=== PATIENT | male | born 1950 | race Caucasian/White ===

== ENCOUNTER 2017-03-03 18:53 | Emergency (ER) | payer OTHER ==
[~2017-03-03] VITALS: Ht 182.9 cm; Wt 97.5 kg
[2017-03-03 19:23] LABS: ABSOLUTE BASOPHIL COUNT 0 /CUMM (0.0-0.2); ABSOLUTE EOSINOPHIL COUNT 0.1 /CUMM (0.0-0.7); ABSOLUTE GRANULOCYTE CT 4.4 /CUMM (1.4-6.5); ABSOLUTE LYMPH COUNT 2.3 /CUMM (1.2-3.4); ABSOLUTE MONOCYTE COUNT 0.6 /CUMM (0.10-0.60); BASOPHIL % 0.3 % (0.0-2.0); EOSINOPHIL % 1.4 % (0-5); GRANULOCYTE % 59.2 % (42.2-75.2); HEMATOCRIT 47.8 % (42-52); MEAN CORPUSCULAR HGB 27.7 PG (27.0-31.0); MEAN CORPUSCULAR HGB CONC 32.9 G/DL (33.0-37.0); MEAN CORPUSCULAR VOLUME 84.2 FL (80.0-94.0); MEAN PLATELET VOLUME 8.4 FL (7.4-10.4); PLATELET COUNT 221 /CUMM (130-400); RBC DISTRIBUTION WIDTH 14.2 % (11.5-14.5); RED BLOOD CELL CT 5.68 /CUMM (4.70-6.10); WHITE BLOOD CELL COUNT 7.4 /CUMM (4.8-10.8)
--- NOTE | 2017-03-03 19:32 | ED GI/GU/ABDOMINAL COMPLAINT ---
History of Present Illness General Chief Complaint: Abdominal Pain/Flank Pain Stated Complaint: RIGHT SIDED ABD PAIN Source: patient Exam Limitations: no limitations Vital Signs & Intake/Output Vital Signs & Intake/Output Vital Signs Date Time Temp Pulse Resp B/P B/P Pulse O2 O2 Flow FiO2 Mean Ox Delivery Rate 03/03 2230 97.7 59 18 164/96 97 Room Air 03/03 1901 97.4 73 14 156/99 100 Room Air ED Intake and Output 03/04 0000 03/03 1200 Intake Total 1000 Output Total Balance 1000 Intake, IV 1000 Patient 215 lb Weight Weight Reported by Patient Measurement Method Allergies Coded Allergies: No Known Allergies (03/03/17) Reconcile Medications Bupropion HCl (Bupropion XL) 150 MG TAB.ER.24H 1 TAB PO DAILY MENTAL HEALTH ( Reported) Clonazepam 1 MG TABLET 2 TAB PO QPM SLEEP (Reported) Ibuprofen 200 MG CAPSULE 4 CAP PO PRN PAIN (Reported) Oxycodone HCl/Acetaminophen (Percocet 5-325 MG Tablet) 5 MG-325 MG TABLET 1 TAB PO Q4-6 PRN PAIN Tramadol HCl 50 MG TABLET 1 TAB PO PRN PAIN (Reported) Triage Note: PT TO ED FOR R SIDED FLANK PAIN FOR PAST SEVERAL DAYS, SAW PCP YESTERDAY WHO PRESCRIBED TRAMADOL WITH NO RELIEF. PT TOOK 800MG IBUPROFEN AT HOME WITH SOME RELIEF. PT HAS DIFFICULTY AT BASELINE URINATING - NO OTHER S/S, NO NAUSEA, VOMITING, DIARRHEA. Triage Nurses Notes Reviewed? yes Onset: Gradual Duration: day(s): (5) Timing: recent history Location: right flank Radiation: no radiation Activities at Onset: none HPI: This is a 66-year-old relatively healthy male, history of anxiety disorder who presents to the chief complaint of right flank pain for the past 5 days. He states it started on Sunday. He noticed initially that it was worse with bending over to the left and better with bending over to the right. Over the last several days the pain has become more constant. It is positional. Denies any nausea vomiting fever or chills. On Sunday he went to see his primary care Dr. Alfaro who thought maybe it could be a kidney stone. He prescribed him tramadol which he picked up from the pharmacy. He states the tramadol has not been helping for the pain. Yesterday he took a dose of ibuprofen which seemed to help a little bit more. Today he was sitting in a movie theater and had pain so severe that he had to stand up and couldn't sit down. He denies any numbness or tingling. Denies any changes in his urine. He does have a history of urethral stricture which has been operated on 2 last surgery was 10 years ago. He states that he has some difficulty in a shooting stream but when distracted doesn't initiate he has no problems with urine. Denies any hematuria or dysuria. Denies any trouble with his bowel movements. Patient is very active, swims at least 2 hours a day. He had several hours of the weekend. Past History Travel History Traveled to [facility] past 21 day No Medical History Any Pertinent Medical History? see below for history Neurological: NONE EENT: NONE Cardiovascular: NONE Respiratory: NONE Gastrointestinal: NONE Hepatic: NONE Renal: NONE Musculoskeletal: NONE Psychiatric: anxiety Endocrine: NONE Blood Disorders: NONE Cancer(s): NONE Surgical History Surgical History: URETHRA STRICTURE X 2 Psychosocial History What is your primary language Chadian Tobacco Use: Never used ETOH Use: occasional use Illicit Drug Use: denies illicit drug use Family History Hx Contributory? No Review of Systems Review of Systems Constitutional: Denies: chills, fever. EENTM: Reports: no symptoms. Respiratory: Denies: cough, short of breath. Cardiovascular: Denies: chest pain, palpitations. GI: Denies: abdominal pain, nausea, vomiting. Genitourinary: Reports: no symptoms. Musculoskeletal: Reports: back pain, muscle pain. Denies: muscle stiffness. Skin: Reports: no symptoms. Neurological/Psychological: Reports: no symptoms. Hematologic/Endocrine: Denies: bruising, bleeding, polyuria, polydipsia. Immunologic/Allergic: Denies: splenectomy. All Other Systems: Reviewed and Negative Physical Exam Physical Exam General Appearance: well developed/nourished, alert, awake Head: atraumatic, normal appearance Eyes: Bilateral: normal appearance, PERRL, EOMI. Ears, Nose, Throat, Mouth: hearing grossly normal, moist mucous membrane Neck: normal inspection, supple, full range of motion Respiratory: normal breath sounds, chest non-tender, no respiratory distress Cardiovascular: regular rate/rhythm Peripheral Pulses: 2+ radial (R), 2+ radial (L) Gastrointestinal: normal bowel sounds, soft, non-tender Back: normal inspection, normal range of motion Extremities: normal range of motion, evidence of injury Neurologic/Psych: no motor/sensory deficits, awake, alert, oriented x 3 Skin: intact, normal color, warm/dry Core Measures ACS in differential dx? No Severe Sepsis Present: No Septic Shock Present: No Progress Differential Diagnosis: pyelonephritis, ureterolithiasis, UTI/pyelo Plan of Care: Orders Procedure Date/time Status Add-on Test (ER Only) 03/03 2304 Active CULTURE,URINE 03/03 2144 Active URINALYSIS 03/03 1902 Complete COMPREHENSIVE METABOLIC PANEL 03/03 1902 Complete CBC WITHOUT DIFFERENTIAL 03/03 1902 Complete Laboratory Tests 03/03/172143: Urine Color YEL, Urine Clarity CLEAR, Urine pH 6.0, Ur Specific Sharon 1.010, Urine Protein NEG, Urine Ketones NEG, Urine Nitrite NEG, Urine Bilirubin NEG, Urine Urobilinogen 0.2, Ur Leukocyte Esterase SMALL H, Ur Microscopic SEDIMENT EXAMINED, Urine RBC RARE, Urine WBC 5-10 H, Ur Epithelial Cells MOD H, Urine Mucus FEW, Urine Hemoglobin NEG, Urine Glucose NEG 03/03/171912: Anion Gap 14, Estimated GFR > 60, BUN/Creatinine Ratio 33.3 H, Glucose 81, Calcium 9.6, Total Bilirubin 0.6, AST 24, ALT 44, Alkaline Phosphatase 76, Total Protein 7.2, Albumin 4.5, Globulin 2.7, Albumin/Globulin Ratio 1.7, CBC w Diff NO MAN DIFF REQ, RBC 5.68, MCV 84.2, MCH 27.7, RDW 14.2, MPV 8.4, Gran % 59.2, Lymphocytes % 30.7, Monocytes % 8.4, Eosinophils % 1.4, Basophils % 0.3, Absolute Granulocytes 4.4, Absolute Lymphocytes 2.3, Absolute Monocytes 0.6, Absolute Eosinophils 0.1, Absolute Basophils 0, PUBS MCHC 32.9 L Microbiology 03/03 2144 URINE ROUT: Urine Culture - RE[facility] LABS, FLUIDS, IV TORADOL ORDERED. CT SCAN ORDERED. IV TYLENOL ORDERED. CT RESULTS PENDING. CT RESULTS DISCUSSED WITH PATIENT AND IMPORTANCE OF FINDING WAS RELAYED TO THE PATIENT. (ANA LAURA HERRERA,SARABJIT) Diagnostic Imaging: Viewed by Me: CT Scan. Discussed w/RAD: CT Scan. Radiology Impression: PATIENT: FRANCO BETTS PRESENT AGE: 66 PATIENT ACCOUNT NO: [id number] : 49 LOCATION: [facility] ORDERING PHYSICIAN: SARABJIT DU MD SERVICE DATE: 03/03/17 EXAM TYPE: CAT - CT ABD & PELVIS W IV CONTRAST EXAMINATION: CT ABDOMEN AND PELVIS WITH CONTRAST CLINICAL INFORMATION: Right flank pain for 5 days. COMPARISON: None TECHNIQUE: Multidetector volumetric imaging was performed of the abdomen and pelvis before and after the IV administration of 116 mL of Optiray 320 intravenous contrast. Sagittal and coronal reformatted images were obtained on the technologist's workstation. DLP: 968 mGy-cm FINDINGS: LUNG BASES: The visualized lung bases are unremarkable. LIVER, GALLBLADDER, AND BILIARY TREE: The liver is normal in size, shape, and attenuation. No focal hepatic lesion or biliary ductal dilatation is present. The gallbladder is unremarkable with no evidence of radiopaque gallstones, gallbladder wall thickening, or obvious pericholecystic inflammatory changes. PANCREAS: Unremarkable. SPLEEN: Unremarkable. ADRENAL GLANDS: Hypertrophied appearance of the left adrenal gland without focal nodule. KIDNEYS AND URETERS: The kidneys are normal in size, shape , and attenuation. No hydronephrosis, hydroureter, or calculi seen. No perinephric stranding. Bilateral renal cysts are present with parapelvic cysts. Within the posterior midpole of the right kidney, there is an exophytic 1.7 cm hyperattenuating lesion. This measures 64 Hounsfield units. BLADDER: Partially distended. Circumferential wall thickening. GASTROINTESTINAL TRACT: Small hiatal hernia. The stomach is otherwise unremarkable. The small bowel is unremarkable. No obstruction. The appendix is not visualized. No colonic wall thickening or inflammatory change. Scattered diverticulosis without diverticulitis. No free air or free fluid. ABDOMINAL WALL: Fat-containing right inguinal hernia. LYMPH NODES: Normal. VASCULAR: Unremarkable. PELVIC VISCERA: The prostate and seminal vesicles are unremarkable. OSSEOUS STRUCTURES: No acute or suspicious osseous abnormality. Mild degenerative changes of the hips and spine. Grade 1 anterolisthesis of L3 on L4 and L4 on L5. Multilevel facet arthropathy. IMPRESSION: 1. Hyperattenuating exophytic right midpole renal lesion measuring 1.7 cm. Though nonspecific, this raises concern for neoplasm. Further evaluation is recommended with renal protocol CT or MRI. 2. No hydronephrosis. Multiple bilateral renal cortical and parapelvic cysts. 3. Diverticulosis without diverticulitis. This critical result was discussed with SARABJIT DU MD by telephone at 03/04/2017 12:31 AM and it was ascertained that the content and urgency of the report was understood at the time of direct communication. DICTATED BY: LARS HERRERA,RAYMON DATE/TIME DICTATED:03/04/1720 ADOPTION COUNSELOR:WENDY DATE/TIME TRANSCRIBED:03/04/1720 CONFIDENTIAL, DO NOT COPY WITHOUT APPROPRIATE AUTHORIZATION. <Electronically signed in Other Vendor System> SIGNED BY: LARS HERRERA,RAYMON 03/04/17 0039 Initial ED EKG: none Departure Departure Time of Disposition: 50 Disposition: HOME OR SELF CARE Condition: Stable Clinical Impression Primary Impression: Flank pain Secondary Impressions: Renal mass Referrals: SLAVA HERRERA,MILLICENT Devi (PCP/Family) Additional Instructions: Please take the Vicodin as needed for pain. Take Percocet for breakthrough pain. Follow up with Dr. Golden on Sunday regarding your CAT scan results for outpatient further workup. Departure Forms: Customer Survey General Discharge Information Prescriptions: Current Visit Scripts Oxycodone HCl/Acetaminophen (Percocet 5-325 MG Tablet) 1 TAB PO Q4-6 PRN PAIN #10 TAB
[2017-03-03] MEDS ORDERED: CLONAZEPAM1 M2 PO (19:57)
[2017-03-03] MEDS ORDERED: TRAMADOL HCL50 M1 PO (19:58)
[2017-03-03] MEDS ORDERED: IBUPROFEN200 M3 PO (19:58)
[2017-03-03] MEDS ORDERED: BUPROPION XL150 MG PO (19:58)
--- NOTE | 2017-03-04 00:39 | CT SCAN REPORT ---
EXAMINATION: CT ABDOMEN AND PELVIS WITH CONTRAST CLINICAL INFORMATION: Right flank pain for 5 days. COMPARISON: None TECHNIQUE: Multidetector volumetric imaging was performed of the abdomen and pelvis before and after the IV administration of 116 mL of Optiray 320 intravenous contrast. Sagittal and coronal reformatted images were obtained on the technologist's workstation. DLP: 968 mGy-cm FINDINGS: LUNG BASES: The visualized lung bases are unremarkable. LIVER, GALLBLADDER, AND BILIARY TREE: The liver is normal in size, shape, and attenuation. No focal hepatic lesion or biliary ductal dilatation is present. The gallbladder is unremarkable with no evidence of radiopaque gallstones, gallbladder wall thickening, or obvious pericholecystic inflammatory changes. PANCREAS: Unremarkable. SPLEEN: Unremarkable. ADRENAL GLANDS: Hypertrophied appearance of the left adrenal gland without focal nodule. KIDNEYS AND URETERS: The kidneys are normal in size, shape, and attenuation. No hydronephrosis, hydroureter, or calculi seen. No perinephric stranding. Bilateral renal cysts are present with parapelvic cysts. Within the posterior midpole of the right kidney, there is an exophytic 1.7 cm hyperattenuating lesion. This measures 64 Hounsfield units. BLADDER: Partially distended. Circumferential wall thickening. GASTROINTESTINAL TRACT: Small hiatal hernia. The stomach is otherwise unremarkable. The small bowel is unremarkable. No obstruction. The appendix is not visualized. No colonic wall thickening or inflammatory change. Scattered diverticulosis without diverticulitis. No free air or free fluid. ABDOMINAL WALL: Fat-containing right inguinal hernia. LYMPH NODES: Normal. VASCULAR: Unremarkable. PELVIC VISCERA: The prostate and seminal vesicles are unremarkable. OSSEOUS STRUCTURES: No acute or suspicious osseous abnormality. Mild degenerative changes of the hips and spine. Grade 1 anterolisthesis of L3 on L4 and L4 on L5. Multilevel facet arthropathy. IMPRESSION: 1. Hyperattenuating exophytic right midpole renal lesion measuring 1.7 cm. Though nonspecific, this raises concern for neoplasm. Further evaluation is recommended with renal protocol CT or MRI. 2. No hydronephrosis. Multiple bilateral renal cortical and parapelvic cysts. 3. Diverticulosis without diverticulitis. This critical result was discussed with SAARBJIT DU MD by telephone at 03/04/2017 12:31 AM and it was ascertained that the content and urgency of the report was understood at the time of direct communication.
[2017-03-04] MEDS ORDERED: PERCOCET 5-3251 EACH PO (00:52)
[2017-03-04 01:15] VITALS: BP 148/75
== END 2017-03-04 01:15 ==
LOC: ERH 18:53
PROVIDERS: Emergency Medicine
DX: N28.89 Other specified disorders of kidney and ureter (principal)
CPT/HCPCS: 74177; 81001; 87086; 96374; 96375; J0131; J1885